=== PATIENT | female | born 1945 | race Caucasian/White ===

== ENCOUNTER → 2017-02-24 | Outpatient (CLI) | payer OTHER, MEDICARE | LOC: RAD 13:19 | DX: Z12.31 Encounter for screening mammogram for malignant neoplasm of breast (principal) ==

== ENCOUNTER → 2020-01-03 | Outpatient (CLI) | payer OTHER, MEDICARE | LOC: RAD 10:23 | DX: N64.4 Mastodynia (principal) ==

== ENCOUNTER → 2020-01-16 | Outpatient (CLI) | payer OTHER, MEDICARE | LOC: ULTRA 13:06 | DX: N60.02 Solitary cyst of left breast (principal) ==